=== PATIENT | male | born 1980 | race African-American/Black ===

== ENCOUNTER 2016-10-05 16:04 | Emergency (ER) | payer OTHER, MEDICAID ==
[2016-10-05] MEDS ORDERED: LET GEL TOPICAL 1 EA SYR TP ONE (17:11)
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
[2016-10-05 19:11] VITALS: BP 134/96; PULSE 82; RESP 16; TEMP 97.9; O2SAT 96
== END 2016-10-05 19:10 | disposition home or self-care (01) ==
DX: S80.12XA Contusion of left lower leg, initial encounter (principal); V13.4XXA Pedal cycle driver injured in collision with car, pick-up truck or van in traffic accident, initial encounter; Y99.8 Other external cause status; Y93.55 Activity, bike riding